=== PATIENT | female | born 1995 | race Caucasian/White ===

== ENCOUNTER → 2016-03-06 | Outpatient (CLI) | payer BC, OTHER ==
[~2016-03-06] MED LIST: SODIUM CHLORIDE 0.9% 250 ML in EMPTY BAG 1 BAG IV PRN; SODIUM CHLORIDE 0.9% 500 ML in EMPTY BAG 1 BAG IV PRN; methylPREDNISolone SOD SUCCI 40 MG/ML 1 ML VIAL IV ONE
[2016-03-06 11:42] VITALS: TEMP 98.6
[2016-03-06 12:25] VITALS: PULSE 65
[2016-03-06 12:50] VITALS: BP 99/58; RESP 15
== END ==
LOC: PROCWHC3 11:06
PROVIDERS: ATTEND Internal Medicine Gastroenterology
DX: K50.80 Crohn's disease of both small and large intestine without complications (principal)
CPT/HCPCS: J2920; J1745; 96361; 96375; 96413; 96415